=== PATIENT | female | born 1995 | race American Indian/Alaskan Native ===

== ENCOUNTER 2024-09-12 18:04 | Emergency (ER) | payer OTHER, SELFPAY ==
[2024-09-12 18:08] VITALS: BP 169/91
[2024-09-12 18:43] VITALS: BMI 31.2
--- NOTE | 2024-09-12 18:43 | ED.GENMED ---
History of Present Illness
General
Chief Complaint: Throat Problem
Source: patient
Exam Limitations: none
Time Seen by Provider: 09/12/24 18:22
History of Present Illness
History of Present Illness:
29yoF with a history of type 2 diabetes presenting with her father for evaluation of neck fullness. Patient was sick in June with a sore throat. She developed a swollen lymph node on the right side of her neck at that time. The lymph node
continued to be swollen and she was prescribed amoxicillin by her PCP about 3 weeks ago. Her right ear feels clogged and her the right side of her throat feels sticky. She is also having postnasal drip. She has a throbbing discomfort in her right
anterior neck and she feels her thyroid is enlarged. She denies any fevers or dysphagia. She is scheduled to see ENT in 3 days but due to her throbbing, she decided to come to the ED.
Phy Exam
General Physical Exam
General Presentation: well appearing and no apparent distress
General age: appears stated age
General Skin: warm and dry
General Habitus: normal
General Mental: alert
ENT Exam
ENT Exam: TM's normal, pharynx normal, neck supple, normocephalic and other (There is a small mobile lymph node beneath R jaw. Mild thyromegaly appreciated. No overlying erythema or warmth. Posterior oropharynx appears normal. Uvula midline. No
trismus. Normal phonation. Tolerating oral secretions without difficulty. )
Neurological Exam
Neurological Exam: alert
[place] Coma Scale
Eye Opening: Spontaneous
Verbal Response: Oriented
Motor Response: Obeys Commands
GCS Total Score: 15
Skin Exam
Skin Exam: normal color and warm/dry
Psychiatric Exam
Psychiatric Exam: normal mood/affect
Course
Orders/Labs/Results
Orders:
Orders
09/12/24 18:39
Test Result ONCE
09/12/24 18:49
Complete Blood Count/With Diff Urgent
Comprehensive Metabolic Panel Urgent
HCG, Serum Qualitative Screen Urgent
TSH Reflex To Free T4 Urgent
09/12/24 20:17
Dexamethasone [Decadron] 10 mg PO NOW STA
Abnormal Lab Results
09/12/24
18:49
Hgb 11.3 L g/dL
(12.0-16.0)
Hct 34.3 L %
(37.0-47.0)
MCV 78.0 L fL
(81.0-99.0)
MCH 25.7 L pg
(27.0-31.0)
MCHC 32.9 L g/dL
(33.0-37.0)
Carbon Dioxide 21 L mmol/L
(22-30)
BUN 6 L mg/dl
(7-17)
Glucose 134 H mg/dl
(70-99)
09/12/24 18:49
09/12/24 18:49
Vital Signs
Initial and Last Documented VS:
Initial Vital Signs
Temp Pulse Resp BP Pulse Ox
98.2 F 94 18 169/91 99
09/12/24 18:08 09/12/24 18:08 09/12/24 18:08 09/12/24 18:08 09/12/24 18:08
Last Documented Vital Signs
Temp Pulse Resp BP Pulse Ox
98.2 F 80 18 126/87 99
09/12/24 18:08 09/12/24 20:33 09/12/24 20:33 09/12/24 20:33 09/12/24 20:33
MDM/Problems Addressed
Differential Diagnosis Includes:
29yoF here with neck fullness and throbbing. Started 2 months ago with an enlarged lymph node after being sick. No fevers or dysphagia. She is mildly hypertensive with otherwise normal vitals. There is a small mobile lymph node palpated on exam as
well as thyromegaly. Posterior oropharynx appears normal. No clinical evidence of VP RHEUMATOLOGY, RPA, epiglottitis, or airway compromise.
Initial ED plan: Check CBC, CMP, and TSH. Discussed with patient that we are unable to obtain a thyroid ultrasound in the ED stay. Do not feel neck CT is warranted at this time given reassuring exam, patient in agreement with this.
*Critical Care Note
Total Time (30-74mins, 75-104mins- exclusive of procedures): Not Applicable
Update Note
Update Note:
Labs overall unremarkable including normal white count and TSH. No indication for hospitalization at this time. She is requesting something to help with her symptoms. Will trial Decadron. She is scheduled to see ENT in 3 days. ED return precautions
discussed. Patient in agreement with plan and was discharged in stable condition.
ED Attending Note
-
Portions of this chart may have been created with voice recognition software.� Occasional wrong word or��sound alike� substitutions may have occurred due to the inherent limitations of voice recognition software.
Discharge Plan
Departure
Patient Disposition: Home (Routine Discharge)
Date of Disposition: 09/12/24
Time of Disposition: 20:18
Patient with high blood pressure during this ER visit?: No
Discharge Problem:
Neck fullness
Instructions: Sore throat in adults - ED discharge instructions
Referrals:
Christy Koenig NP [Family Provider] -
Activity Restrictions/Additional Instructions:
Please follow-up with ENT on Sunday as previously scheduled. Return to the ER with any worsening symptoms or inability to swallow.
Interventions
Interventions:
*Risk Screen - Suicide Last Done: 09/12/24 18:08
*General Assessment Last Done: 09/12/24 18:08
*Neglect/Abuse Screening Last Done: 09/12/24 18:08
*ED COVID-19 Vaccine History Last Done: 09/12/24 18:50
*Nursing Disposition Last Done: 09/12/24 20:37
ED-EENT Assessment Last Done: 09/12/24 18:52
ED- Pulmonary Assessment Last Done: 09/12/24 18:52
Discharge Date and Time
Discharge Date/Time: 09/12/24 20:38
Print Language: WELSH
[2024-09-12 18:51] VITALS: BP 133/88
[2024-09-12 19:00] VITALS: BP 119/81
[2024-09-12 19:07] LABS: % Basophils 0.2 % (0-2); % Eosinophils 2.9 % (0-6); % Immature Granulocytes 0.2 % (0-0.5); % Monocytes 6.2 % (1.7-9.3); % Neutrophils 57.5 % (42.2-75.2); Absolute Eosinophils 0.2 10^3/uL (0-0.7); Absolute Lymphocytes 2.7 10^3/uL (1.2-3.4); Absolute Monocytes 0.5 10^3/uL (0.1-0.6); Absolute Neutrophils 4.7 10^3/uL (1.4-6.5); Hematocrit 34.3 % (37.0-47.0); Hemoglobin 11.3 g/dL (12.0-16.0); Mean Corp Hgb Conc. 32.9 g/dL (33.0-37.0); Mean Corpuscular Hgb 25.7 pg (27.0-31.0); Mean Platelet Volume 9.9 fL (7.4-10.4); Nucleated Red Blood Cells % 0 %; Platelet Count 318 10^3/uL (130-400); Red Cell Dist. Width 13.2 % (11.5-14.5); White Blood Cell Count 8.2 10^3/uL (4.8-10.8)
[2024-09-12 19:10] LABS: HCG, Serum Qualitative Screen Negative
[2024-09-12 19:14] LABS: ALT (SGPT) 21 U/L (0-35); AST (SGOT) 23 U/L (14-36); Albumin 4.4 g/dl (3.5-5.0); Alkaline Phosphatase 90 U/L (38-126); Blood Urea Nitrogen 6 mg/dl (7-17); Calcium 9.8 mg/dl (8.4-10.2); Carbon Dioxide 21 mmol/L (22-30); Chloride 104 mmol/L (98-107); Estimated Creatinine Clearance > 125 ml/min; Glucose 134 mg/dl (70-99); Potassium 3.5 mmol/L (3.5-5.1); Sodium 138 mmol/L (135-145); Total Bilirubin 0.5 mg/dl (0.2-1.3); Total Protein 7.4 g/dl (6.3-8.2); eGFR > 60.00
[2024-09-12 19:46] LABS: TSH Reflex To Free T4 1.44 uIU/ml (0.47-4.68)
[2024-09-12 20:00] VITALS: BP 128/95
[2024-09-12 20:33] VITALS: BP 126/87
[2024-09-12] MEDS: DECADRON 10 MG PO (20:34)
== END 2024-09-12 20:38 | disposition home or self-care (01) ==
LOC: EMR 18:04
PROVIDERS: Physician Assistant; EMERGENCY PHYSICIAN Emergency Medicine; FAMILY PHYSICIAN Nurse Practitioner Women's Health
DX: M54.2 Cervicalgia (principal); E07.89 Other specified disorders of thyroid; E11.9 Type 2 diabetes mellitus without complications
CPT/HCPCS: 99283; 80053; 84443; 84703; 85025